=== PATIENT | male | born 1955 | race Caucasian/White ===

== ENCOUNTER 2017-05-14 18:02 | Emergency (ER) | payer OTHER ==
[~2017-05-14] VITALS: Ht 175.3 cm; Wt 87.3 kg
[2017-05-14] MEDS ORDERED: FLOM5CAP PO (18:24)
[2017-05-14] MEDS ORDERED: ATOR40TA75 PO (18:24)
--- NOTE | 2017-05-14 19:10 | REPUSA ---
CLINICAL HISTORY: CVA. TECHNIQUE: Multiple axial brain CT scan sections were obtained from base to vertex without contrast a dministration. COMMENTS: The study shows normal configuration of sella turcica. There are no intra or extra-axial collections. There is no mass effect or midline shift. There is no evidence of hematoma formation. No hydrocephal us is present. No abnormal calcifications are noted. No significant abnormalities are seen either in the posterior fossa or supratentorial compartment. The sinuses and mastoid air cells are patent. IMPRESSION: No evidence of acute intracranial pathology. Consider follow up with MRI/diffusion. Thank you for your kind referral of this patient.
--- NOTE | 2017-05-14 19:55 | ECGEPIP ---
Stationary ECG Study [facility] - ED Test Date: 2017-05-14 Pat Name: ISAIAH CORADO Department: Room: - Gender: M [employer] Member: iram : [id number] Requested By: PÉREZ Phillip Order Number: [id number] Reading MD: Hosea Martinez Measurements Intervals [place] Rate: 85 P: 27 OR: 147 QRS: 32 QRSD: 97 T: 24 QT: 346 QTc: 412 Interpretive Statements SINUS RHYTHM Electronically Signed On 05-14-2017 19:55:19 EDT by Hosea Martinez
[2017-05-14] MEDS ORDERED: predniSONE 20 MG TAB PO ONE (20:15)
[2017-05-14] MEDS ORDERED: PRED20TA PO (20:40)
== END 2017-05-14 20:53 | disposition home or self-care (01) ==
LOC: MERGE 18:02 → M ED 18:02
DX: G51.0 Bell's palsy (principal); E78.5 Hyperlipidemia, unspecified; N40.0 Benign prostatic hyperplasia without lower urinary tract symptoms; L42 Pityriasis rosea; Z79.899 Other long term (current) drug therapy

== ENCOUNTER 2018-09-14 07:00 | Emergency (ER) | payer OTHER ==
[2018-09-14 08:03] LABS: BASO % 0.3 % (0.0-1.0); EOS # 0.2 10^3/uL (0.0-0.50); EOS % 1.5 % (0.0-3.0); HEMATOCRIT 43.5 % (42.0-52.0); HEMOGLOBIN 14.5 g/dl (13.5-17.5); IMMATURE GRANULOCYTE % 0.3 % (0-3.0); LYMPH % 7.5 % (24.0-44.0); MEAN CORPUSCULAR HEMOGLOBIN 28.4 pg (27.0-33.0); MEAN CORPUSCULAR HGB CONC 33.3 g/dl (32.0-36.5); MEAN CORPUSCULAR VOLUME 85.1 fl (80.0-96.0); MONO # 1.1 10^3/uL (0.0-0.8); MONO % 8.4 % (0.0-5.0); NEUTROPHILS # 10.7 10^3/uL (1.8-7.7); PLATELET COUNT, AUTOMATED 282 10^3/uL (150-450); RED BLOOD COUNT 5.11 10^6/uL (4.30-6.10); RED CELL DISTRIBUTION WIDTH 12.5 % (11.5-14.5)
[2018-09-14 08:16] LABS: ANION GAP 5 MEQ/L (8-16); BLOOD UREA NITROGEN 15 MG/DL (7-18); CALCIUM LEVEL 8.9 MG/DL (8.8-10.2); CARBON DIOXIDE LEVEL 31 MEQ/L (21-32); CHLORIDE LEVEL 101 MEQ/L (98-107); CREATININE FOR GFR 0.91 MG/DL (0.70-1.30); GLOMERULAR FILTRATION RATE > 60.0 (>49); GLUCOSE, FASTING 104 MG/DL (70-100); INR 1.15; POTASSIUM SERUM 3.8 MEQ/L (3.5-5.1); PROTHROMBIN TIME 14.8 SECONDS (12.1-14.4); SODIUM LEVEL 137 MEQ/L (136-145); URIC ACID 3.3 MG/DL (3.5-7.2)
[2018-09-14 08:18] LABS: D-DIMER QUANT 463.8 ng/ml (<500)
[2018-09-14 10:15] LABS: CRYSTALS, BODY FLUID CA PYROPHOSPHATE (NONE SEEN); SOURCE, BODY FLUID CRYSTALS RT KNEE
[2018-09-14 10:22] LABS: BF MONONUCLEAR CELL % 9.6 % (0-0); BF POLYMORPHONUCLEAR CELL % 90.4 % (0-0); RBC BODY FLUID 2 10^3/uL (<2)
[2018-09-14 10:34] LABS: BF DIFF IF INDICATED? YES (NO); WBC BODY FLUID 44660 /uL (0-10)
[2018-09-14 10:35] LABS: APPEARANCE, BODY FLUID CLOUDY (CLEAR); SOURCE, BODY FLUID RT KNEE; SYNOVIAL FLUID COLOR YELLOW (YELLOW)
[2018-09-14 11:03] LABS: SOURCE, BODY FLUID GLUCOSE RT KNEE; SOURCE, BODY FLUID URIC ACID RT KNEE; URIC ACID, BODY FLUID 3.9 MG/DL (NOT ESTABLISHED)
[2018-09-14 11:59] LABS: ERYTHROCYTE SEDIMENTATION RATE 47 mm/hr (0-20)
[2018-09-16 00:39] LABS: Lyme Disease IgG Ab 18 kDa Ban Present (.); Lyme Disease IgG Ab 23 kDa Ban Absent (.); Lyme Disease IgG Ab 28 kDa Ban Absent (.); Lyme Disease IgG Ab 30 kDa Ban Present (.); Lyme Disease IgG Ab 39 kDa Ban Present (.); Lyme Disease IgG Ab 41 kDa Ban Present (.); Lyme Disease IgG Ab 45 kDa Ban Present (.); Lyme Disease IgG Ab 58 kDa Ban Present (.); Lyme Disease IgG Ab 66 kDa Ban Present (.); Lyme Disease IgG Ab 93 kDa Ban Absent (.); Lyme Disease IgG West Blot Int Positive (.); Lyme Disease IgG/IgM Antibodie 3.35 ISR (0.00-0.90); Lyme Disease IgM Ab 23 kDa Ban Present (.); Lyme Disease IgM Ab 39 kDa Ban Absent (.); Lyme Disease IgM Ab 41 kDa Ban Present (.); Lyme Disease IgM Ab Quantitati 2.99 index (0.00-0.79); Lyme Disease IgM West Blot Int Positive (.)
== END 2018-09-14 11:45 | disposition home or self-care (01) ==
LOC: M ED 07:00
DX: M25.861 Other specified joint disorders, right knee (principal); E78.5 Hyperlipidemia, unspecified
CPT/HCPCS: 73564

== ENCOUNTER → 2020-11-27 | Outpatient (CLI) | payer OTHER ==
[~2020-11-27] MED LIST: ATOR40TA75 PO; DOXY100C37 PO; FLOM0.4C39 PO; MOBI4TAB PO; PRED20TA PO; PROHANCE 279.3MG/ML 15ML VIAL As Ordered ONE; PROHANCE 279.3MG/ML 5ML VIAL As Ordered ONE
--- NOTE | 2020-11-27 17:09 | REP ---
INDICATION: ELEVATED PSA, MRI FUSION BX. COMPARISON: No comparison studies. TECHNIQUE: Using a phased array surface coil, small ybhzi-og-agzb imaging was acquired using T2 weighted scans in the axial, coronal, and sagittal imaging planes. Small yixiw-bh-yypx diffusion-weighted sequences are acquired. Small bnnvm-jy-xjym axial T1 weighted scans are acquired dynamically before and after the intravenous administration of 17 mL of ProHance. Imaging is reviewed using the [employer] computer-aided detection system. The patient interrupted the scan sequence in the midst of the dynamic post-contrast portion of the exam. After discussing with the technologist, you agree to continue but had shifted slightly in position. FINDINGS: Prostate is enlarged with nodular hypertrophy of the central gland consistent with BPH. Prostate calculated volume is 67 mL. Dimensions are 5.9 x 4.7 x 4.8 cm. There is no evidence of adenopathy, skeletal metastasis, or extraprostatic disease on T1 and T2 weighted scans. There is fatty infiltration of the inguinal canals bilaterally. No abdominal wall hernia is seen. Three target areas are identified and localized in the prostate gland for consideration of MR/ultrasound fusion directed needle biopsy. Lesion 1. Is in the left lateral peripheral zone and left mid lateral peripheral zone with a calculated volume of 2.3 mL and dimensions of 2.9 x 1.1 x 1.0 cm. It shows quite low T2 signal intensity with low ADC and slightly increased diffusion-weighted signal. PI- RADS category 4/5. 2. Is a 1.2 x 0.6 x 0.7 cm low T2 signal intensity area in the right mid medial peripheral zone. Calculated volume 1.1 mL. No abnormality on diffusion-weighted scans or hypervascularity on dynamic study. PI-RADS category 3/5. 3. Is in the right mid medial peripheral zone with dimensions of 1.2 x 0.6 x 0.7 cm, calculated volume 0.4 mL. This shows focal low T2 signal intensity with no abnormality on diffusion or hypervascularity. BI-RADS 3/5. IMPRESSION: Enlarged prostate with hypervascular nodules in the central gland. Three targets identified in the peripheral zone and transmitted for consideration of MR/ultrasound fusion directed biopsy. <Electronically signed by Mark Borjas > 11/27/20 [id number]
== END ==
LOC: M RAD 12:32
PROVIDERS: ATTEND Urology
DX: D07.5 Carcinoma in situ of prostate (principal); R97.20 Elevated prostate specific antigen [PSA]
CPT/HCPCS: 72197; A9576

== ENCOUNTER → 2020-12-12 | Outpatient (CLI) | payer OTHER ==
[~2020-12-12] MED LIST changes: -PROHANCE 279.3MG/ML 15ML VIAL As Ordered ONE; -PROHANCE 279.3MG/ML 5ML VIAL As Ordered ONE
--- NOTE | 2020-12-12 13:25 | REPPI ---
INDICATION: ELEVATED PSA. Carcinoma in situ of the prostate. COMPARISON: None. TECHNIQUE: Transrectal prostate sonography. Transrectal ultrasound guidance. FINDINGS: . Transrectal sonographic guidance is provided to Dr. Roblero who performed trans rectal ultrasound guided needle biopsy procedure. IMPRESSION: Transrectal prostate sonographic guidance as above. <Electronically signed by Mark Borjas > 12/12/20 [id number]
== END ==
LOC: M SMT PRO 08:11
PROVIDERS: ATTEND Urology
DX: R97.20 Elevated prostate specific antigen [PSA] (principal)
CPT/HCPCS: 76942; G0416

== ENCOUNTER 2023-05-26 11:13 | Day surgery (SDC) | payer MEDICARE, OTHER ==
[~2023-05-26] VITALS: Ht 176.5 cm; Wt 88.1 kg
[~2023-05-26 11:13] MED LIST changes: +DOXY-443 PO; -DOXY100C37 PO; +NS 1,000 ML IV ONE
[2023-05-26] MEDS ORDERED: propofoL 200 MG/20 ML VIAL As Ordered ONE (13:41)
[2023-05-26 14:00] VITALS: TEMP 97.5
[2023-05-26 14:17] VITALS: BP 119/63; O2SAT 96
== END 2023-05-26 14:35 | disposition home or self-care (01) ==
LOC: M OPP 11:13
PROVIDERS: ATTEND Internal Medicine Gastroenterology
DX: Z12.11 Encounter for screening for malignant neoplasm of colon (principal); D12.3 Benign neoplasm of transverse colon; K64.0 First degree hemorrhoids; K57.30 Diverticulosis of large intestine without perforation or abscess without bleeding; Z79.02 Long term (current) use of antithrombotics/antiplatelets; Z79.899 Other long term (current) drug therapy

== ENCOUNTER → 2023-12-19 | Outpatient (CLI) | payer OTHER ==
[~2023-12-19] MED LIST changes: -NS 1,000 ML IV ONE
== END ==
LOC: M PLALAB 09:15
PROVIDERS: ATTEND Physician Assistant
DX: R97.20 Elevated prostate specific antigen [PSA] (principal)

== ENCOUNTER → 2024-01-06 | Outpatient (CLI) | payer OTHER, MEDICARE ==
[~2024-01-06] MED LIST changes: +PROHANCE 279.3MG/ML 15ML VIAL ONE; +PROHANCE 279.3MG/ML 5ML VIAL ONE
== END ==
LOC: M PLAIMG 09:55
PROVIDERS: ATTEND Physician Assistant
DX: R97.20 Elevated prostate specific antigen [PSA] (principal); R93.89 Abnormal findings on diagnostic imaging of other specified body structures
CPT/HCPCS: 72197; A9576